=== PATIENT | female | born 1935 | race Caucasian/White ===

== ENCOUNTER 2021-03-31 15:31 | Emergency (ER) | payer OTHER ==
[~2021-03-31 15:31] MED LIST: CELEXA20 MG PO; CYPROHEPTADINE H4 MG PO; ELIQUIS2.5 MG PO; FEOSOL325 MG PO; HCTZ12.5 MG PO; LASIX20 MG PO; LISINOPRIL10 MG PO; MICON-GUARD 2% TOP; NAMENDA 10MG TA10 MG PO; PANTOPRAZOLE SO40 MG PO; PERCOCET 5-3251 EACH PO; SYNTHROID75 MCG PO; ULTRA-LIGHT RO1 EACH XX; UROCIT-K10 MEQ PO; XANAX0.5 M1 PO; ZESTRIL5 MG PO; ZOLOFT50 MG PO
[2021-03-31 16:53] LABS: BASOPHIL 0.8 % (0-2); EOSINOPHIL 2.7 % (0-7); HCT 47.1 % (37.0-47.0); HGB 15.4 g/dl (12.5-16.0); LYMPHOCYTE 42.5 % (15-48); MCH 30.1 pg (25.0-31.0); MCHC 32.7 g/dL (32.0-36.0); MCV 92.2 fL (78.0-100.0); MONOCYTE 11.5 % (0-12); NEUTROPHIL 42.2 % (41-80); NRBC 0; PLT 175 K/uL (150-400); RBC 5.11 M/uL (4.20-5.40); RDW 13.2 % (11.5-14.0); WBC 7.1 K/uL (4.0-10.5)
[2021-03-31 16:53] LABS: BILIRUBIN NEGATIVE (NEGATIVE); BLOOD NEGATIVE Ery/uL (NEGATIVE); CLARITY CLEAR (CLEAR); COLOR YELLOW (YELLOW); GLUCOSE (U) NORMAL (NORMAL); LEUKOCYTES NEGATIVE Leu/uL (NEGATIVE); NITRITE NEGATIVE (NEGATIVE); PROTEIN NEGATIVE (NEGATIVE); SPECIFIC GRAVITY 1.015 (1.001-1.030)
[2021-03-31 16:59] LABS: URINARY RBC RARE
[2021-03-31 17:18] LABS: ALBUMIN 3.8 g/dL (3.4-5.0); BILIRUBIN - TOTAL 0.7 mg/dL (0.2-1.0); BUN/CREAT RATIO (CALC) 13.5 RATIO; CREATININE 0.74 mg/dL (0.51-0.95); GLOBULIN (CALCULATION) 3.7 g/dL; POTASSIUM 3.7 mmol/L (3.5-5.1); TOTAL PROTEIN 7.5 g/dL (6.4-8.2)
== END 2021-03-31 18:40 | disposition home or self-care (01) ==
LOC: FER 15:31
PROVIDERS: Physician Assistant
DX: R41.0 Disorientation, unspecified (principal); F03.90 Unspecified dementia, unspecified severity, without behavioral disturbance, psychotic disturbance, mood disturbance, and anxiety; Z95.0 Presence of cardiac pacemaker; Z79.01 Long term (current) use of anticoagulants
CPT/HCPCS: 36415; 70450; 71045; 80053; 81001; 84443; 84484; 85025; 93005

== ENCOUNTER 2022-03-03 13:47 | Emergency (ER) | payer OTHER ==
[2022-03-03] MEDS ORDERED: CYPROHEPTADINE H4 M1 PO (15:09)
[2022-03-03] MEDS ORDERED: ATARAX25 MG PO (15:09)
[2022-03-03] MEDS ORDERED: SERTRALINE HCL25 MG PO (15:09)
[2022-03-03] MEDS ORDERED: LEVOTHYROXINE75 MC1 PO (15:09)
[2022-03-03] MEDS ORDERED: XARELTO15 MG PO (15:09)
[2022-03-03 15:40] LABS: BASOPHIL 0.2 % (0-2); EOSINOPHIL 0 % (0-7); HCT 44.2 % (37.0-47.0); HGB 14.8 g/dl (12.5-16.0); LYMPHOCYTE 14.6 % (15-48); MCH 29.1 pg (25.0-31.0); MCHC 33.5 g/dL (32.0-36.0); MONOCYTE 8.5 % (0-12); MPV 10.9 fL (6.0-9.5); NEUTROPHIL 76.3 % (41-80); NRBC 0; PLT 130 K/uL (150-400); RBC 5.08 M/uL (4.20-5.40); RDW 13.8 % (11.5-14.0); WBC 13.5 K/uL (4.0-10.5)
[2022-03-03 15:59] LABS: CORONAVIRUS 2019 SARS-COV-2 NEGATIVE (NEGATIVE); INFLUENZA A NAA NEGATIVE (NEGATIVE)
[2022-03-03 15:59] LABS: BUN/CREAT RATIO (CALC) 19.6 RATIO; CREATININE 0.92 mg/dL (0.51-0.95); POTASSIUM 3.7 mmol/L (3.5-5.1)
[2022-03-03 17:25] LABS: BILIRUBIN NEGATIVE (NEGATIVE); BLOOD NEGATIVE Ery/uL (NEGATIVE); CLARITY CLEAR (CLEAR); COLOR YELLOW (YELLOW); GLUCOSE (U) NORMAL (NORMAL); LEUKOCYTES NEGATIVE Leu/uL (NEGATIVE); NITRITE NEGATIVE (NEGATIVE); PROTEIN NEGATIVE (NEGATIVE); SPECIFIC GRAVITY 1.025 (1.001-1.030); UROBILINOGEN 0.2 mg/dL (0.2-1.0)
== END 2022-03-03 18:28 | disposition home or self-care (01) ==
LOC: FER 13:47
PROVIDERS: Nurse Practitioner Family
DX: J06.9 Acute upper respiratory infection, unspecified (principal); F03.90 Unspecified dementia, unspecified severity, without behavioral disturbance, psychotic disturbance, mood disturbance, and anxiety; I10 Essential (primary) hypertension; Z20.822 Contact with and (suspected) exposure to COVID-19; Z28.310 Unvaccinated for COVID-19
CPT/HCPCS: 36415; 70450; 71045; 80048; 81003; 84484; 85025; 93005; U0002

== ENCOUNTER 2022-03-25 11:26 | Inpatient (IN) | payer OTHER ==
[~2022-03-25] VITALS: Ht 162.6 cm; Wt 44.1 kg
[~2022-03-25 11:26] MED LIST changes: +ATARAX25 MG PO; +CYPROHEPTADINE H4 M1 PO; +LEVOTHYROXINE75 MC1 PO; +SERTRALINE HCL25 MG PO; +XARELTO15 MG PO
[2022-03-25 12:28] LABS: BASOPHIL 0.6 % (0-2); EOSINOPHIL 0.2 % (0-7); HCT 40.5 % (37.0-47.0); HGB 13.4 g/dl (12.5-16.0); LYMPHOCYTE 17.2 % (15-48); MCHC 33.1 g/dL (32.0-36.0); MCV 87.7 fL (78.0-100.0); MONOCYTE 9.2 % (0-12); MPV 11.5 fL (6.0-9.5); NEUTROPHIL 71.8 % (41-80); NRBC 0; PLT 173 K/uL (150-400); RBC 4.62 M/uL (4.20-5.40); RDW 15.7 % (11.5-14.0)
[2022-03-25 12:39] LABS: ALBUMIN 3.3 g/dL (3.4-5.0); BUN/CREAT RATIO (CALC) 20.9 RATIO; CREATININE 0.67 mg/dL (0.51-0.95); GLOBULIN (CALCULATION) 3.5 g/dL; TOTAL PROTEIN 6.8 g/dL (6.4-8.2)
[2022-03-25 13:11] LABS: POTASSIUM 3.3 mmol/L (3.5-5.1)
[2022-03-25] MEDS ORDERED: ACETAMINOPHEN500 M1 PO (14:53)
[2022-03-25] MEDS ORDERED: APLISOL5 TUB UNIT ID (14:55)
[2022-03-25] MEDS ORDERED: OS-CAL500 MG PO (14:57)
[2022-03-25] MEDS ORDERED: CYPROHEPTADINE H4 MG PO ×2 (14:58→15:10)
[2022-03-25] MEDS ORDERED: COLACE100 MG PO (14:58)
[2022-03-25] MEDS ORDERED: ATARAX25 MG PO (15:01)
[2022-03-25] MEDS ORDERED: SYNTHROID75 MCG PO ×2 (15:04→15:05)
[2022-03-25] MEDS ORDERED: ZOLOFT 25MG TAB25 MG PO (15:06)
[2022-03-25] MEDS ORDERED: XARELTO15 MG PO (15:08)
[2022-03-25 21:40] LABS: BILIRUBIN NEGATIVE (NEGATIVE); BLOOD TRACE-INTACT Ery/uL (NEGATIVE); CLARITY CLEAR (CLEAR); COLOR YELLOW (YELLOW); GLUCOSE (U) NORMAL (NORMAL); LEUKOCYTES NEGATIVE Leu/uL (NEGATIVE); NITRITE NEGATIVE (NEGATIVE); PROTEIN NEGATIVE (NEGATIVE); UROBILINOGEN 0.2 mg/dL (0.2-1.0); pH 6.5 (5.0-9.0)
[2022-03-25 21:47] LABS: SQUAMOUS EPITHELIAL CELLS RARE
[2022-03-26 06:11] LABS: BASOPHIL 0.3 % (0-2); EOSINOPHIL 0.3 % (0-7); HCT 40.5 % (37.0-47.0); HGB 12.8 g/dl (12.5-16.0); LYMPHOCYTE 25.1 % (15-48); MCH 29.2 pg (25.0-31.0); MCHC 31.6 g/dL (32.0-36.0); MONOCYTE 11.2 % (0-12); NEUTROPHIL 62.7 % (41-80); NRBC 0; PLT 142 K/uL (150-400); RBC 4.38 M/uL (4.20-5.40); RDW 15.9 % (11.5-14.0); WBC 6.9 K/uL (4.0-10.5)
[2022-03-26 06:15] LABS: MCV 92.5 fL (78.0-100.0)
[2022-03-26 08:03] LABS: BUN/CREAT RATIO (CALC) 17.9 RATIO; CREATININE 0.84 mg/dL (0.51-0.95); MAGNESIUM 2.3 mg/dL (1.8-2.4); POTASSIUM 4.7 mmol/L (3.5-5.1)
--- NOTE | 2022-03-26 11:32 | NUR ---
MET WITH PT AND DAUGHTER, BRITTANY MAYES, . BRITTANY ADVISED THAT HER MOTHER IS A RESIDENT AT [facility] IN [place]. THE FIRST CHOICE FOR SKILLED CARE WOULD BE [facility] IN [facility] AND 2ND CHOICE IS [facility] IN [facility]. CONTACTED MARIKA AT [facility]. SHE STATED THAT THEY DO NOT ACCEPT PASSPORT ADVANTAGE. CONTACTED SIOBHAN AT [facility]. SHE ADVISED TO SEND THE REFERRAL AND THEY WILL REVIEW. SHE DOES NOT HAVE ANY PASSPORT BEDS AT THIS TIME, IF PT HAS TO STAY PAST HER 20 DAYS. ADVISED BRITTANY OF THE ABOVE INFORMATION. SHE WILL BE SPEAKING WITH HER BROTHER REGARDING ANY OTHER CHOICES FOR SKILLED CARE.
--- NOTE | 2022-03-26 15:18 | NUR ---
ATTEMPT TO GET CONSENT, INFORMED THAT MD SPOKE WITH THE SON. CALLED THE SON AND MARIANAMIS AND HE STATED THAT HE HAD NOT SPOKE WITH THE MD. MESSAGE LEFT FOR THE DAUGHTER IN REFERENCE TO ABOVE, INFORMED ORTHO UNABLE TO GET CONSENT AT THIS TIME
[2022-03-26 15:38] LABS: INR 1.43 (0.9-1.2); PROTHROMBIN TIME 16.7 SECONDS (11.8-13.4); PTT 36.8 SECONDS (24.4-34.7)
--- NOTE | 2022-03-26 17:15 | NUR ---
CALL TO PATIENT'S FAMILY FOR CONSENT WHICH WAS OBTAINED AND LISTENED TO BY ELLEN, UPON LOOKING AT ORDER STATED LEFT HIP BUT PATIENT WITH RIGHT HIP FX, WILL SPEAK WITH MD IN AM ABOUT CHANGING ORDER FOR CONSENT
[2022-03-27 06:17] LABS: BASOPHIL 0.3 % (0-2); HCT 41.1 % (37.0-47.0); HGB 12.7 g/dl (12.5-16.0); LYMPHOCYTE 24.2 % (15-48); MCH 29.1 pg (25.0-31.0); MCHC 30.9 g/dL (32.0-36.0); MCV 94.1 fL (78.0-100.0); MONOCYTE 11.7 % (0-12); MPV 10.6 fL (6.0-9.5); NEUTROPHIL 61.6 % (41-80); NRBC 0; PLT 122 K/uL (150-400); RBC 4.37 M/uL (4.20-5.40); RDW 15.9 % (11.5-14.0)
[2022-03-27 07:12] LABS: INR 1.24 (0.9-1.2); PROTHROMBIN TIME 14.9 SECONDS (11.8-13.4); PTT 33.2 SECONDS (24.4-34.7)
[2022-03-27 08:23] LABS: BUN/CREAT RATIO (CALC) 13.5 RATIO; CREATININE 0.89 mg/dL (0.51-0.95); POTASSIUM 5.2 mmol/L (3.5-5.1)
[2022-03-28 07:04] LABS: BASOPHIL 0.3 % (0-2); HCT 35.3 % (37.0-47.0); HGB 11.4 g/dl (12.5-16.0); LYMPHOCYTE 15.7 % (15-48); MCH 29.7 pg (25.0-31.0); MCHC 32.3 g/dL (32.0-36.0); MCV 91.9 fL (78.0-100.0); NEUTROPHIL 70.1 % (41-80); NRBC 0; PLT 113 K/uL (150-400); RBC 3.84 M/uL (4.20-5.40); RDW 15.5 % (11.5-14.0); WBC 7.9 K/uL (4.0-10.5)
[2022-03-28 07:20] LABS: BUN/CREAT RATIO (CALC) 15.9 RATIO; CREATININE 0.69 mg/dL (0.51-0.95); POTASSIUM 4.2 mmol/L (3.5-5.1)
[2022-03-29 06:53] LABS: BASOPHIL 0.5 % (0-2); EOSINOPHIL 1.3 % (0-7); HCT 36.9 % (37.0-47.0); HGB 12.1 g/dl (12.5-16.0); LYMPHOCYTE 15.5 % (15-48); MCH 29.6 pg (25.0-31.0); MCHC 32.8 g/dL (32.0-36.0); MCV 90.2 fL (78.0-100.0); MONOCYTE 11.2 % (0-12); NEUTROPHIL 71.1 % (41-80); NRBC 0; PLT 130 K/uL (150-400); RBC 4.09 M/uL (4.20-5.40); RDW 15.4 % (11.5-14.0); WBC 8.4 K/uL (4.0-10.5)
[2022-03-29 07:20] LABS: BUN/CREAT RATIO (CALC) 16.7 RATIO; CREATININE 0.54 mg/dL (0.51-0.95); POTASSIUM 3.5 mmol/L (3.5-5.1)
--- NOTE | 2022-03-29 15:37 | NUR ---
contacted dietary department to request ONS on trays d/t increased needs s/p surgical intervention for fx hip. will monitor acceptance to supplements.
--- NOTE | 2022-03-29 16:33 | NUR ---
ordered ONS on trays BID, with Ensure milkshake for 2pm; bedtime snack of ice cream/sherbet to meet elevated energy needs. will monitor p.o. and progress toward goals
[2022-03-30 06:12] LABS: BASOPHIL 0.3 % (0-2); EOSINOPHIL 1.9 % (0-7); HCT 34.1 % (37.0-47.0); HGB 11.4 g/dl (12.5-16.0); LYMPHOCYTE 19.5 % (15-48); MCH 29.6 pg (25.0-31.0); MCHC 33.4 g/dL (32.0-36.0); MCV 88.6 fL (78.0-100.0); MONOCYTE 10.3 % (0-12); MPV 11.3 fL (6.0-9.5); NEUTROPHIL 67.7 % (41-80); NRBC 0; PLT 161 K/uL (150-400); RBC 3.85 M/uL (4.20-5.40); RDW 15.7 % (11.5-14.0); WBC 7.9 K/uL (4.0-10.5)
[2022-04-01 06:45] LABS: BASOPHIL 1.1 % (0-2); EOSINOPHIL 3.5 % (0-7); HCT 37.8 % (37.0-47.0); HGB 12.5 g/dl (12.5-16.0); LYMPHOCYTE 33.1 % (15-48); MCH 29.3 pg (25.0-31.0); MCHC 33.1 g/dL (32.0-36.0); MCV 88.5 fL (78.0-100.0); MONOCYTE 10.9 % (0-12); MPV 10.9 fL (6.0-9.5); NEUTROPHIL 50.3 % (41-80); NRBC 0; PLT 237 K/uL (150-400); RBC 4.27 M/uL (4.20-5.40); RDW 15.9 % (11.5-14.0); WBC 6.3 K/uL (4.0-10.5)
[2022-04-01 06:58] LABS: BUN/CREAT RATIO (CALC) 19.1 RATIO; CREATININE 0.68 mg/dL (0.51-0.95); POTASSIUM 3.3 mmol/L (3.5-5.1)
[2022-04-02 07:55] LABS: BUN/CREAT RATIO (CALC) 16.2 RATIO; CREATININE 0.68 mg/dL (0.51-0.95); POTASSIUM 3.6 mmol/L (3.5-5.1)
[2022-04-02] MEDS ORDERED: SENNOSIDES-DOC1 EACH PO (09:39)
[2022-04-02] MEDS ORDERED: ACETAMINOPHEN325 MG PO (09:46)
== END 2022-04-02 11:39 | DRG 521 ==
LOC: FER 11:26 → FMS 13:01
PROVIDERS: Emergency Medicine; Internal Medicine; Nurse Practitioner; Orthopaedic Surgery; ADMIT Internal Medicine
PROC: B24BZZZ Ultrasonography of Heart with Aorta (ICD-10-PCS; 2022-03-26)
PROC: 0SRR0JA Replacement of Right Hip Joint, Femoral Surface with Synthetic Substitute, Uncemented, Open Approach (ICD-10-PCS; principal; 2022-03-27 08:30)
DX: S72.001A Fracture of unspecified part of neck of right femur, initial encounter for closed fracture (principal); G93.41 Metabolic encephalopathy; I48.20 Chronic atrial fibrillation, unspecified; I48.92 Unspecified atrial flutter; I08.0 Rheumatic disorders of both mitral and aortic valves; Z66 Do not resuscitate; Z20.822 Contact with and (suspected) exposure to COVID-19; I10 Essential (primary) hypertension; E03.9 Hypothyroidism, unspecified; F41.1 Generalized anxiety disorder; R94.31 Abnormal electrocardiogram [ECG] [EKG]; F32.A Depression, unspecified; I49.5 Sick sinus syndrome; E87.6 Hypokalemia; G30.9 Alzheimer's disease, unspecified; F02.80 Dementia in other diseases classified elsewhere, unspecified severity, without behavioral disturbance, psychotic disturbance, mood disturbance, and anxiety; W19.XXXA Unspecified fall, initial encounter; Z90.710 Acquired absence of both cervix and uterus; Z79.01 Long term (current) use of anticoagulants; Z95.0 Presence of cardiac pacemaker; Z90.49 Acquired absence of other specified parts of digestive tract; Y92.009 Unspecified place in unspecified non-institutional (private) residence as the place of occurrence of the external cause; Z82.49 Family history of ischemic heart disease and other diseases of the circulatory system; Z80.3 Family history of malignant neoplasm of breast; Z79.899 Other long term (current) drug therapy
CPT/HCPCS: 36415; 71045; 73501; 73502; 76000; 80048; 80053; 81001; 83735; 85025; 85610; 85730; 86850; 86900; 86901; 92526; 93005; 97110; 97116; 97162; 97166; 97530; 97530-GP; 97535; C1776; C9113; J0171; J0697; J1170; J1885; J2250; J2270; J2405; J2704; J2795; J3010; J3480; J7030; J7120; U0002

== ENCOUNTER 2022-04-08 10:01 | Emergency (ER) | payer OTHER ==
[~2022-04-08 10:01] MED LIST changes: +ACETAMINOPHEN325 MG PO; +ACETAMINOPHEN500 M1 PO; +APLISOL5 TUB UNIT ID; +COLACE100 MG PO; +OS-CAL500 MG PO; +SENNOSIDES-DOC1 EACH PO; +ZOLOFT 25MG TAB25 MG PO
[2022-04-08 15:35] LABS: BASOPHIL 0.5 % (0-2); EOSINOPHIL 0.8 % (0-7); HCT 35.9 % (37.0-47.0); HGB 11.5 g/dl (12.5-16.0); LYMPHOCYTE 14.2 % (15-48); MCH 29.6 pg (25.0-31.0); MCV 92.3 fL (78.0-100.0); MONOCYTE 5.6 % (0-12); MPV 10.2 fL (6.0-9.5); NEUTROPHIL 78.3 % (41-80); NRBC 0; PLT 367 K/uL (150-400); RBC 3.89 M/uL (4.20-5.40); WBC 10.6 K/uL (4.0-10.5)
[2022-04-08 15:43] LABS: INR 1.25 (0.9-1.2); PROTHROMBIN TIME 15.3 SECONDS (11.9-13.9); PTT 29.2 SECONDS (24.9-34.6)
[2022-04-08 16:25] LABS: ALBUMIN 2.8 g/dL (3.4-5.0); BILIRUBIN - TOTAL 0.5 mg/dL (0.2-1.0); BUN/CREAT RATIO (CALC) 11.8 RATIO; CREATININE 0.76 mg/dL (0.51-0.95); GLOBULIN (CALCULATION) 3.4 g/dL; POTASSIUM 4.2 mmol/L (3.5-5.1); TOTAL PROTEIN 6.2 g/dL (6.4-8.2)
== END 2022-04-08 16:30 | disposition other institution (70) ==
LOC: FER 10:01
PROVIDERS: Emergency Medicine
DX: S52.502B Unspecified fracture of the lower end of left radius, initial encounter for open fracture type I or II (principal); S52.602B Unspecified fracture of lower end of left ulna, initial encounter for open fracture type I or II; F03.90 Unspecified dementia, unspecified severity, without behavioral disturbance, psychotic disturbance, mood disturbance, and anxiety; Z28.310 Unvaccinated for COVID-19; W19.XXXA Unspecified fall, initial encounter; Y92.121 Bathroom in nursing home as the place of occurrence of the external cause
CPT/HCPCS: 36415; 70450; 73100; 73110; 80053; 85025; 85610; 85730; 96365; 96375; J0690; J1170; J2405; J2704

== ENCOUNTER 2022-06-01 03:44 | Emergency (ER) | payer OTHER | END 2022-06-01 05:10 | disposition home or self-care (01) | LOC: FER 03:44 | DX: Z04.3 Encounter for examination and observation following other accident (principal); I25.10 Atherosclerotic heart disease of native coronary artery without angina pectoris; I48.91 Unspecified atrial fibrillation; Z79.01 Long term (current) use of anticoagulants | CPT/HCPCS: 70450 ==